=== PATIENT | male | born 1980 | race Caucasian/White ===

== ENCOUNTER 2023-01-15 15:27 | Emergency (ER) | payer OTHER, SELFPAY ==
--- NOTE | ~2023-01-15 | XR_ITS ---
EXAMINATION: XR SHOULDER, LEFT CLINICAL INFORMATION: Left shoulder pain while doing pushups. COMPARISON: None available. TECHNIQUE: Four views of the left shoulder. FINDINGS: The bones and soft tissues are normal. No fracture. Glenohumeral and acromioclavicular alignment is anatomic with normal joint space. No abnormal soft tissue calcifications. XR/XR shoulder LT min 2V IMPRESSION: Normal left shoulder.
[2023-01-15 15:44] VITALS: BP 140/92; PULSE 74; RESP 18; TEMP 36.6; O2SAT 98; BMI 28.1
--- NOTE | 2023-01-15 16:48 | ECG_ITS ---
Test Reason : DIZZINESS Blood Pressure : / mmHG Vent. Rate : 049 BPM Atrial Rate : 049 BPM P-R Int : 172 ms QRS Dur : 112 ms QT Int : 422 ms P-R-T Axes : 039 079 043 degrees QTc Int : 381 ms Sinus bradycardia Otherwise normal ECG No previous ECGs available Referred By: Carlos Rocha Electronically Signed By:DALTON CLARK
--- NOTE | 2023-01-15 16:49 | ED_ITS ---
HPI - General Adult General Chief complaint: Extremity Problem Stated complaint: injuries from PT Time Seen by Provider: 01/15/23 17:30 Source: patient and RN notes reviewed Mode of arrival: ambulatory Limitations: no limitations History of Present Illness HPI narrative: This is a 42 year old male, with no known past medical history, presenting to the ER with complaints of left shoulder pain since today. Pt states that while he was doing push ups, he suddenly felt pain and weakness in his left shoulder. Reports pain in his left shoulder which worsens with movement and with palpation. Denies taking any medications at home to treat his current symptoms. Denies any chest pain, shortness of breath, abdominal pain, nausea, vomiting or diarrhea. No hx of shoulder injuries or pain in the past. No other complaints or concerns at this time. MD complaint: L shoulder pain Onset (ago): day(s) Location: upper extremity Radiation: non-radiation Severity: moderate Quality: aching Pain Consistency: constant Relieving factors: immobilization Exacerbating factors: movement Associated symptoms: denies other symptoms Treatments prior to arrival: none Related Data Previous Rx's Medication Instructions Recorded ibuprofen 800 mg tablet 800 mg PO Q8H PRN pain #45 tabs 01/15/23 Allergies Allergy/AdvReac Type Severity Reaction Status Date / Time No Known Allergies Allergy Verified 01/15/23 15:43 Review of Systems 2 Review of Systems: Yes all other systems are reviewed and are negative [facility] Social History Social History Alcohol intake: never Smoked in Last 30 Days: Yes Use of substances other than those prescribed or required for medical reasons: No Advance Directives: No Advance Directives Information Provided: No Physical Exam ED Vital Signs: Vital Signs - 24 hr 01/15/23 15:44 Temperature 98 F Pulse Rate 74 Respiratory Rate 18 Blood Pressure 140/92 H Pulse Oximetry 98 Oxygen Delivery Method Room Air BMI result Body Mass Index 28.1 Const Other: General: Awake, alert, and oriented X3. No acute distress. HEENT: Normal inspection CVS: Normal heart rate and rhythm. Pulses normal. Respiratory: No respiratory distress Skin: Warm, dry, no rashes noted to exposed skin. Normal skin color. Normal skin turgor. Extremities: Left shoulder with no bony abnormalities or swelling. tenderness to palpation over the anterior shoulder and overlying the AC joint and bicipital groove. +empty can test, + lift off test. Active ROM of the left shoulder to about 90 degrees with forward flexion and abduction. Radial pulse 2+. No overlying erythema or warmth. Neuro: Oriented X 3. No motor deficit. No sensory deficit. Course Course Course Narrative: RME: 42 yold female presents to the ED for left shoulder pain while doing puships. shoulder pain on range of motiont. Xray ordered. due to age EkG and labs ordered Medical Decision Making Medical Decision Making MDM Narrative: 42 y/o M, with no known hx, presenting to the ER with complaints of left shoulder pain since performing pushups. On arrival, vital signs stable. X-rays and labs were ordered and performed prior to my assessment. Exam findings concerning for shoulder strain vs rotator cuff/ligamentous injury given pain with ROM, +empty can test and lift off test. Xrays performed revealing no bony abnormalities. Labs with no leukocytosis, stable H&H, chemistry nondiagnostic. negative troponin, Pt has no risk factors, no chest pain or SOB, heart score of 0, will not repeat second troponin. Discussed workup with patient. Advised to rest, ice, and take ibuprofen as directed. Given orthopedic referral and advised to follow up with them if pain persists. Pt understands and agrees with plan. Stable for d/c. Differential Diagnosis Differential Diagnoses: The differential diagnosis associated with the presentation includes Rotator cuff injury, shoulder sprain, AC joint separation. Lab Data 01/15/23 17:03 01/15/23 17:03 Labs: Lab Results 01/15/23 Range/Units 17:03 WBC 10.7 (4.8-10.8) X10*3/uL RBC 5.98 H (4.60-5.80) X10*6/uL Hgb 17.2 (14.0-18.0) g/dl Hct 50.9 (42.0-52.0) % MCV 85.1 (80.0-98.0) fL MCH 28.8 (27.0-33.0) pg MCHC 33.8 (31.0-36.0) g/dl RDW 13.0 (11.0-16.0) % Plt Count 212 (160-400) X10*3/uL MPV 10.5 (9.4-12.4) fL Immature Gran % (Auto) 0.4 (0.0-0.4) % Neut % (Auto) 62.3 (45-73) % Lymph % (Auto) 27.6 (20-40) % Prentiss % (Auto) 7.5 (2-11) % Eos % (Auto) 1.9 (0-4) % Baso % (Auto) 0.3 (0-2) % Lymph # (Auto) 3.0 (1.2-4.9) X10*3/uL Prentiss # (Auto) 0.8 (0.1-1.2) X10*3/uL Eos # (Auto) 0.2 (0.0-0.4) X10*3/uL Baso # (Auto) 0.0 (0.0-0.2) X10*3/uL Abs Immat Gran (auto) 0.04 H (0.00-0.03) X10*3/uL Absolute Neuts (auto) 6.7 (2.0-8.3) x10*3/uL Absolute Nucleated RBC 0.000 (0.0-0.012) X10*3/uL Nucleated RBC % (auto) 0.0 (0.0-0.2) /100WBC PT 11.2 (11.1-13.3) SEC INR 0.9 (0.9-1.1) APTT 31.4 (26.0-36.4) SEC Sodium 139 (135-145) mmol/L Potassium 4.1 (3.3-5.1) mmol/L Chloride 107 (96-108) mmol/L Carbon Dioxide 26 (22-29) mmol/L Anion Gap 10 L (12-20) BUN 16 (9-16) mg/dL Creatinine 1.03 (0.5-1.4) mg/dL Estim Creat Clear Calc 112.2 Estimated GFR > 60 Random Glucose 99 (60-115) mg/dL Calcium 9.3 (8.4-10.2) mg/dL Total Bilirubin 0.5 (0.0-1.0) mg/dL AST 39 H (5-37) U/L ALT 60 H (0-40) U/L Alkaline Phosphatase 84 (39-117) U/L Troponin I High Sens < 2.7 (<3.5-35.0) ng/L Total Protein 7.5 (6.5-8.0) g/dL Albumin 4.5 (3.5-5.0) g/dL Independent Interpretation I performed an independent interpretation of an: EKG Interpretation: Vent. Rate : 049 BPM Atrial Rate : 049 BPM P-R Int : 172 ms QRS Dur : 112 ms QT Int : 422 ms P-R-T Axes : 039 079 043 degrees QTc Int : 381 ms Sinus bradycardia Otherwise normal ECG No previous ECGs available Radiology Impression Discussion of test interpretation with radiology: I have reviewed the radiologist's reading. Radiologist Impression: EXAMINATION: XR SHOULDER, LEFT CLINICAL INFORMATION: Left shoulder pain while doing pushups. COMPARISON: None available. TECHNIQUE: Four views of the left shoulder. FINDINGS: The bones and soft tissues are normal. No fracture. Glenohumeral and acromioclavicular alignment is anatomic with normal joint space. No abnormal soft tissue calcifications. XR/XR shoulder LT min 2V IMPRESSION: Normal left shoulder. Dictated By: Shobha Gross MD Discharge Plan Discharge Clinical Impression: Left shoulder strain Patient Disposition: Home, Self-Care Instructions: Muscle Strain (ED), Rotator Cuff Injury (ED), Rotator Cuff Injury Exercises (DC) Additional Instructions: Your x-ray of your left shoulder did not show any broken bones or dislocation. You likely strained your shoulder. We are unable to determine whether not this is a rotator cuff injury. You need an MRI to determine whether not you have torn your rotator cuff. Please call your primary care physician or [facility] for further management treatment of your symptoms. Rest, ice, take ibuprofen as directed. Any new or worsening symptoms occur including but not limited to chest pain or shortness of breath, please return for re-evaluation. Prescriptions: New ibuprofen 800 mg tablet 800 mg PO Q8H PRN (Reason: pain) Qty: 45 0RF Referrals: [facility] [Provider Group] Interventions: ED Discharge Assessment Last Done: 01/15/23 19:50 Discharge Date/Time: 01/15/23 19:52
[2023-01-15 17:09] LABS: MANUAL DIFF FLAG NO
[2023-01-15 17:10] LABS: Basophils Percent Auto 0.3 % (0-2); Eosinophils Absolute Auto 0.2 X10*3/uL (0.0-0.4); Eosinophils Percent Auto 1.9 % (0-4); Hematocrit 50.9 % (42.0-52.0); Hemoglobin 17.2 g/dl (14.0-18.0); Imm Gran Abs Auto 0.04 X10*3/uL (0.00-0.03); Imm Gran Pct Auto 0.4 % (0.0-0.4); Lymphocytes Percent Auto 27.6 % (20-40); Mean Corpuscular HGB Conc 33.8 g/dl (31.0-36.0); Mean Corpuscular Hemoglobin 28.8 pg (27.0-33.0); Mean Corpuscular Volume 85.1 fL (80.0-98.0); Mean Platelet Volume 10.5 fL (9.4-12.4); Monocytes Absolute Auto 0.8 X10*3/uL (0.1-1.2); Monocytes Percent Auto 7.5 % (2-11); Neutrophils Absolute Auto 6.7 x10*3/uL (2.0-8.3); Neutrophils Percent Auto 62.3 % (45-73); Platelet Count 212 X10*3/uL (160-400); Red Blood Count 5.98 X10*6/uL (4.60-5.80); White Blood Count 10.7 X10*3/uL (4.8-10.8)
[2023-01-15 17:28] LABS: Alanine Aminotransferase 60 U/L (0-40); Albumin Level 4.5 g/dL (3.5-5.0); Alkaline Phosphatase 84 U/L (39-117); Anion Gap 10 (12-20); Aspartate Amino Transferase 39 U/L (5-37); Bilirubin Total 0.5 mg/dL (0.0-1.0); Blood Urea Nitrogen 16 mg/dL (9-16); Calcium 9.3 mg/dL (8.4-10.2); Carbon Dioxide 26 mmol/L (22-29); Chloride 107 mmol/L (96-108); Creatinine Clr Calc Pharmacy 112.2; Estimated Glomerular Filt Rate > 60; Glucose Random 99 mg/dL (60-115); Potassium 4.1 mmol/L (3.3-5.1); Sodium 139 mmol/L (135-145); Total Protein 7.5 g/dL (6.5-8.0)
[2023-01-15 17:38] LABS: Troponin-I High Sensitivity < 2.7 ng/L (<3.5-35.0)
[2023-01-15 22:17] LABS: INTERNATIONAL NORM RATIO 0.9 (0.9-1.1); Prothrombin Time 11.2 SEC (11.1-13.3)
[2023-01-15 22:20] LABS: Partial Thromboplastin Time 31.4 SEC (26.0-36.4)
== END 2023-01-15 19:52 | disposition home or self-care (01) ==
PROVIDERS: Physician Assistant; Emergency Provider Internal Medicine
DX: S43.402A Unspecified sprain of left shoulder joint, initial encounter (principal); M25.512 Pain in left shoulder; R00.1 Bradycardia, unspecified; R42 Dizziness and giddiness; X58.XXXA Exposure to other specified factors, initial encounter; Y93.9 Activity, unspecified; Y92.9 Unspecified place or not applicable; Y99.9 Unspecified external cause status; Z79.899 Other long term (current) drug therapy
CPT/HCPCS: 36415; 73030; 80053; 84484; 85025; 85610; 85730; 93005; 99284